=== PATIENT | female | born 1990 | race Hispanic/Latino ===

== ENCOUNTER 2018-05-02 15:06 | Emergency (ER) | payer MEDICAID ==
[2018-05-02] MEDS ORDERED: ACETAMINOPHEN 325 MG TAB ONE (15:44)
[2018-05-02 15:49] LABS: APPEARANCE,URINE Clear (CLEAR); BILIRUBIN,URINE Negative (NEGATIVE); COLOR,URINE Yellow (YELLOW); GLUCOSE, URINE (UA) Negative (NEGATIVE); KETONES,URINE Negative (NEGATIVE); LEUKOCYTE ESTERASE ,URINE Small (NEGATIVE); NITRATE,URINE Negative (NEGATIVE); OCCULT BLOOD,URINE Negative (NEGATIVE); PH,URINE 5.5 (5.0-8.0); PROTEIN,URINE Negative (NEGATIVE)
[2018-05-02 16:00] LABS: BACTERIA,URINE Few /HPF (None Seen); RBC,URINE None Seen /HPF (0-1)
== END 2018-05-02 17:23 | disposition home or self-care (01) ==
LOC: EDH 15:06
DX: O20.0 Threatened abortion (principal); O23.11 Infections of bladder in pregnancy, first trimester; M54.5 Low back pain; Z3A.01 Less than 8 weeks gestation of pregnancy; Z90.49 Acquired absence of other specified parts of digestive tract; Z88.0 Allergy status to penicillin
CPT/HCPCS: 36415; 76801; 81001; 84702

== ENCOUNTER 2018-07-09 10:29 | Emergency (ER) | payer MEDICAID ==
[2018-07-09 11:20] LABS: APPEARANCE,URINE Clear (CLEAR); BILIRUBIN,URINE Negative (NEGATIVE); COLOR,URINE Yellow (YELLOW); GLUCOSE, URINE (UA) Negative (NEGATIVE); KETONES,URINE Trace mg/dL (NEGATIVE); LEUKOCYTE ESTERASE ,URINE Small (NEGATIVE); NITRATE,URINE Negative (NEGATIVE); OCCULT BLOOD,URINE Negative (NEGATIVE); PROTEIN,URINE Negative (NEGATIVE)
[2018-07-09 11:31] LABS: RBC,URINE None Seen /HPF (0-1); WBC,URINE 0-1 /HPF (0-1)
[2018-07-09 11:32] LABS: BACTERIA,URINE Rare /HPF (None Seen); MUCUS,URINE Rare LPF (None Seen); SQUAMOUS EPITHELIAL CELL,UR Rare /HPF (0-2)
== END 2018-07-09 12:54 | disposition home or self-care (01) ==
LOC: EDH 10:29
DX: O23.41 Unspecified infection of urinary tract in pregnancy, first trimester (principal); Z3A.13 13 weeks gestation of pregnancy; Z90.49 Acquired absence of other specified parts of digestive tract; Z88.0 Allergy status to penicillin
CPT/HCPCS: 81001; 87088

== ENCOUNTER 2018-07-16 12:26 | Emergency (ER) | payer MEDICAID ==
[2018-07-16] MEDS ORDERED: ACETAMINOPHEN EXTRA STRENGTH 500 MG TABLET ONE (14:54)
== END 2018-07-16 17:20 | disposition home or self-care (01) ==
LOC: EDH 12:26
DX: O26.892 Other specified pregnancy related conditions, second trimester (principal); M54.5 Low back pain; R10.32 Left lower quadrant pain; Z88.0 Allergy status to penicillin; Z90.49 Acquired absence of other specified parts of digestive tract; Z98.890 Other specified postprocedural states; Z3A.14 14 weeks gestation of pregnancy
CPT/HCPCS: 76805

== ENCOUNTER 2018-08-25 16:15 | Observation (INO) | payer MEDICAID ==
[~2018-08-25] VITALS: Ht 154.9 cm; Wt 71.2 kg
[2018-08-25 17:28] LABS: APPEARANCE,URINE CLEAR (CLEAR); BILIRUBIN,URINE NEGATIVE (NEGATIVE); COLOR,URINE YELLOW (YELLOW); GLUCOSE, URINE (UA) NEGATIVE (NEGATIVE); KETONES,URINE NEGATIVE (NEGATIVE); LEUKOCYTE ESTERASE ,URINE TRACE (NEGATIVE); NITRATE,URINE NEGATIVE (NEGATIVE); OCCULT BLOOD,URINE NEGATIVE (NEGATIVE); PROTEIN,URINE NEGATIVE (NEGATIVE); UROBILINOGEN,URINE 0.2 mg/dL (0.2-1.0)
[2018-08-25 17:37] LABS: RBC,URINE 0-1 /HPF (0-1)
[2018-08-25 17:38] LABS: BACTERIA,URINE Few /HPF (None Seen); MUCUS,URINE Few LPF (None Seen); SQUAMOUS EPITHELIAL CELL,UR Few /HPF (0-2)
== END 2018-08-25 18:07 | disposition home or self-care (01) ==
LOC: EDH 16:15 → LDH 16:52
PROVIDERS: ADMIT Obstetrics & Gynecology; ATTEND Obstetrics & Gynecology
DX: O26.892 Other specified pregnancy related conditions, second trimester (principal); R10.9 Unspecified abdominal pain; V89.2XXA Person injured in unspecified motor-vehicle accident, traffic, initial encounter; Y93.89 Activity, other specified; Y92.410 Unspecified street and highway as the place of occurrence of the external cause; Y99.8 Other external cause status; Z3A.20 20 weeks gestation of pregnancy
CPT/HCPCS: 81001; 99284; G0378

== ENCOUNTER 2018-09-29 11:31 | Observation (INO) | payer MEDICAID ==
[2018-09-29 12:06] LABS: APPEARANCE,URINE Cloudy (CLEAR); BILIRUBIN,URINE Negative (NEGATIVE); COLOR,URINE Yellow (YELLOW); GLUCOSE, URINE (UA) Negative (NEGATIVE); KETONES,URINE Negative (NEGATIVE); LEUKOCYTE ESTERASE ,URINE Small (NEGATIVE); NITRATE,URINE Negative (NEGATIVE); OCCULT BLOOD,URINE Negative (NEGATIVE); PROTEIN,URINE Negative (NEGATIVE); UROBILINOGEN,URINE 0.2 mg/dL (0.2-1.0)
[2018-09-29 12:15] LABS: BACTERIA,URINE Few /HPF (None Seen); RBC,URINE 0-1 /HPF (0-1); SQUAMOUS EPITHELIAL CELL,UR Rare /HPF (0-2)
[2018-09-29] MEDS ORDERED: LACTATED RINGERS 1000ML 1,000 ML IV SCH (13:15)
[2018-09-29] MEDS ORDERED: PROMETHAZINE HCL 25 MG/ML 1ML AMPULE IM SCH (13:15)
== END 2018-09-29 13:55 | disposition home or self-care (01) ==
LOC: EDH 11:31 → LDH 11:57
PROVIDERS: ADMIT Obstetrics & Gynecology; ATTEND Obstetrics & Gynecology
DX: O21.2 Late vomiting of pregnancy (principal); O26.892 Other specified pregnancy related conditions, second trimester; R07.2 Precordial pain; R19.7 Diarrhea, unspecified; Z3A.25 25 weeks gestation of pregnancy
CPT/HCPCS: 81001; 99284; G0378 ×2; J7120 ×3; 96360; J2550

== ENCOUNTER 2018-11-03 08:45 | Observation (INO) | payer MEDICAID ==
[~2018-11-03] VITALS: Ht 154.9 cm; Wt 73.0 kg
[2018-11-03 09:49] LABS: APPEARANCE,URINE Clear (CLEAR); BILIRUBIN,URINE Negative (NEGATIVE); COLOR,URINE Yellow (YELLOW); GLUCOSE, URINE (UA) Negative (NEGATIVE); KETONES,URINE Negative (NEGATIVE); LEUKOCYTE ESTERASE ,URINE Trace (NEGATIVE); NITRATE,URINE Negative (NEGATIVE); OCCULT BLOOD,URINE Negative (NEGATIVE); PROTEIN,URINE Negative (NEGATIVE); UROBILINOGEN,URINE 0.2 mg/dL (0.2-1.0)
[2018-11-03 09:59] LABS: BACTERIA,URINE Rare /HPF (None Seen); RBC,URINE 0-1 /HPF (0-1); SQUAMOUS EPITHELIAL CELL,UR Rare /HPF (0-2); WBC,URINE 0-1 /HPF (0-1)
[2018-11-03] MEDS ORDERED: LACTATED RINGERS 1000ML 1,000 ML IV ONE (10:42)
[2018-11-03] MEDS ORDERED: TERBUTALINE SULFATE VIAL 1MG/ML SQ PRN (10:45)
[2018-11-03] MEDS ORDERED: LACTATED RINGERS 1000ML 1,000 ML IV SCH (10:45)
[2018-11-03] MEDS ORDERED: TERBUTALINE SULFATE VIAL 1MG/ML SQ ONE (10:53)
[2018-11-03] MEDS ORDERED: ACETAMINOPHEN 325 MG TAB PO SCH (12:15)
[2018-11-03] MEDS ORDERED: ACETAMINOPHEN 325 MG TAB ONE (12:29)
== END 2018-11-03 15:05 | disposition home or self-care (01) ==
LOC: LDH 08:45
PROVIDERS: ADMIT Obstetrics & Gynecology; ATTEND Obstetrics & Gynecology
DX: O42.913 Preterm premature rupture of membranes, unspecified as to length of time between rupture and onset of labor, third trimester (principal); Z3A.30 30 weeks gestation of pregnancy
CPT/HCPCS: 81001; 82120; 96372; G0378 ×6; J3105; J7120 ×3; 96360; 96361

== ENCOUNTER 2018-11-15 21:31 | Observation (INO) | payer MEDICAID ==
[~2018-11-15] VITALS: Ht 154.9 cm; Wt 70.3 kg
[2018-11-15 22:07] LABS: BILIRUBIN,URINE Negative (NEGATIVE); COLOR,URINE Yellow (YELLOW); GLUCOSE, URINE (UA) Negative (NEGATIVE); KETONES,URINE Negative (NEGATIVE); LEUKOCYTE ESTERASE ,URINE Small (NEGATIVE); NITRATE,URINE Negative (NEGATIVE); OCCULT BLOOD,URINE Negative (NEGATIVE); PROTEIN,URINE Negative (NEGATIVE)
[2018-11-15 22:08] LABS: APPEARANCE,URINE SLIGHTLY CLOUDY (CLEAR)
[2018-11-15 22:15] LABS: BACTERIA,URINE Few /HPF (None Seen); RBC,URINE 0-1 /HPF (0-1); SQUAMOUS EPITHELIAL CELL,UR Few /HPF (0-2)
[2018-11-15 22:16] LABS: AMORPHOUS SEDIMENT,UR Few /LPF (None Seen); AMPHET/METH SCREEN,URINE NEGATIVE (NEGATIVE); BARBITURATE SCREEN, URINE NEGATIVE (NEGATIVE); BENZODIAZEPINES SCREEN,URINE NEGATIVE (NEGATIVE); CANNABINOID SCREEN,URINE NEGATIVE (NEGATIVE); COCAINE SCREEN,URINE NEGATIVE (NEGATIVE); OPIATE SCREEN,URINE NEGATIVE (NEGATIVE); PHENCYCLIDINE SCREEN,URINE NEGATIVE (NEGATIVE)
[2018-11-15] MEDS ORDERED: CLINDAMYCIN 900 MG/D5% WATER 50 ML IV SCH (22:40)
[2018-11-15] MEDS: LACTATED RINGERS 1000ML 1,000 ML IV PRN (23:58)
[2018-11-16] MEDS: LACTATED RINGERS 1000ML 1,000 ML IV PRN (03:00)
[2018-11-16 08:23] VITALS: BP 107/56
== END 2018-11-16 08:33 | disposition home or self-care (01) ==
LOC: EDH 21:31 → LDH 21:42
PROVIDERS: ADMIT Obstetrics & Gynecology; ATTEND Obstetrics & Gynecology
DX: O62.9 Abnormality of forces of labor, unspecified (principal); Z3A.33 33 weeks gestation of pregnancy; Z79.899 Other long term (current) drug therapy
CPT/HCPCS: 80305; 81001; 96365; 99284; G0378 ×11; J3490; J7120 ×2; 96360; 96361

== ENCOUNTER 2018-11-30 20:52 | Observation (INO) | payer MEDICAID ==
[~2018-11-30] VITALS: Ht 154.9 cm; Wt 76.2 kg
[2018-11-30] MEDS ORDERED: LACTATED RINGERS 1000ML 1,000 ML IV PRN (20:59)
[2018-11-30] MEDS: TERBUTALINE SULFATE VIAL 1MG/ML SQ SCH ×2 (22:17→22:55)
[2018-11-30 22:19] LABS: APPEARANCE,URINE Clear (CLEAR); BILIRUBIN,URINE Negative (NEGATIVE); COLOR,URINE Yellow (YELLOW); GLUCOSE, URINE (UA) Negative (NEGATIVE); KETONES,URINE Negative (NEGATIVE); LEUKOCYTE ESTERASE ,URINE Trace (NEGATIVE); NITRATE,URINE Negative (NEGATIVE); OCCULT BLOOD,URINE Negative (NEGATIVE); PROTEIN,URINE Negative (NEGATIVE); UROBILINOGEN,URINE 0.2 mg/dL (0.2-1.0)
[2018-11-30 22:27] LABS: AMPHET/METH SCREEN,URINE NEGATIVE (NEGATIVE); BARBITURATE SCREEN, URINE NEGATIVE (NEGATIVE); BENZODIAZEPINES SCREEN,URINE NEGATIVE (NEGATIVE); CANNABINOID SCREEN,URINE NEGATIVE (NEGATIVE); COCAINE SCREEN,URINE NEGATIVE (NEGATIVE); OPIATE SCREEN,URINE NEGATIVE (NEGATIVE); PHENCYCLIDINE SCREEN,URINE NEGATIVE (NEGATIVE)
[2018-11-30 22:36] LABS: BACTERIA,URINE Moderate /HPF (None Seen); RBC,URINE 0-1 /HPF (0-1); WBC,URINE 0-1 /HPF (0-1)
[2018-11-30] MEDS: LACTATED RINGERS 1000ML 1,000 ML IV SCH ×2 (22:56→23:42)
== END 2018-12-01 01:35 | disposition home or self-care (01) ==
LOC: EDH 20:52 → LDH 20:53
PROVIDERS: ADMIT Obstetrics & Gynecology; ATTEND Obstetrics & Gynecology
DX: O60.03 Preterm labor without delivery, third trimester (principal); Z3A.34 34 weeks gestation of pregnancy; Z79.899 Other long term (current) drug therapy
CPT/HCPCS: 80305; 81001; 96372 ×2; 99284; G0378 ×5; J3105; J7120; 96360; 96361

== ENCOUNTER 2018-12-12 03:53 | Observation (INO) | payer MEDICAID ==
[~2018-12-12] VITALS: Ht 154.9 cm; Wt 76.2 kg
[2018-12-12 04:08] VITALS: BP 123/72
[2018-12-12] MEDS ORDERED: LACTATED RINGERS 1000ML IV PRN (04:15)
[2018-12-12 04:21] LABS: APPEARANCE,URINE Clear (CLEAR); BILIRUBIN,URINE Negative (NEGATIVE); COLOR,URINE Yellow (YELLOW); GLUCOSE, URINE (UA) Negative (NEGATIVE); KETONES,URINE Negative (NEGATIVE); LEUKOCYTE ESTERASE ,URINE Small (NEGATIVE); NITRATE,URINE Negative (NEGATIVE); OCCULT BLOOD,URINE Negative (NEGATIVE); PH,URINE 6.5 (5.0-8.0); PROTEIN,URINE Negative (NEGATIVE); UROBILINOGEN,URINE 0.2 mg/dL (0.2-1.0)
[2018-12-12 04:41] LABS: BACTERIA,URINE Few /HPF (None Seen); RBC,URINE 0-1 /HPF (0-1)
[2018-12-12] MEDS ORDERED: LACTATED RINGERS 1000ML 1,000 ML IV SCH (05:45)
[2018-12-12] MEDS ORDERED: TERBUTALINE SULFATE VIAL 1MG/ML SQ SCH (05:45)
[2018-12-12] MEDS ORDERED: TERBUTALINE SULFATE VIAL 1MG/ML SQ ONE (05:56)
== END 2018-12-12 09:50 | disposition home or self-care (01) ==
LOC: EDH 03:53 → LDH 04:01
PROVIDERS: ADMIT Obstetrics & Gynecology; ATTEND Obstetrics & Gynecology
DX: O62.9 Abnormality of forces of labor, unspecified (principal); Z3A.36 36 weeks gestation of pregnancy
CPT/HCPCS: 59025; 76805; 81001; 96372; 99284; G0378 ×6; J3105; J7120 ×2; 96360; 96361

== ENCOUNTER 2025-03-15 17:11 | Emergency (ER) | payer OTHER ==
[~2025-03-15] VITALS: Ht 154.9 cm; Wt 69.9 kg
[~2025-03-15 17:11] MED LIST: PANT40TA55 PO
[2025-03-15 17:13] VITALS: TEMP 98.1
[2025-03-15 18:04] LABS: IMMATURE GRANULOCYTE ABSOLUTE 0.03 K/uL (0-1); NUCLEATED RED BLOOD CELLS 0.0 % (0.0-0.19); PLATELET COUNT (AUTO) 310 K/uL (130-400); RED BLOOD CELL COUNT(AUTO) 4.77 MIL/uL (4.00-5.50); RED CELL DISTRIBUTION WIDTH 13.2 % (11.0-15.5); WHITE BLOOD COUNT (AUTO) 10.5 K/uL (4.8-10.8)
[2025-03-15 18:05] LABS: APPEARANCE,URINE CLOUDY (CLEAR); GLUCOSE, URINE (UA) NEGATIVE (NEGATIVE); LEUKOCYTE ESTERASE ,URINE 25 Leu/uL (NEGATIVE); NITRATE,URINE NEGATIVE (NEGATIVE); OCCULT BLOOD,URINE NEGATIVE (NEGATIVE)
[2025-03-15 18:06] LABS: ADD UA MICROSCOPIC YES
[2025-03-15 18:09] LABS: SQUAMOUS EPITHELIAL CELL,UR FEW /HPF (0-2)
[2025-03-15 18:09] LABS: CREATININE 0.6 mg/dL (0.5-1.0); GLOMERULAR FILTR. RATE CALC 121.0 mL/min (>90); GLUCOSE,RANDOM 95.0 mg/dL (70-105); SODIUM SERUM 139.0 mmol/L (136-145); UREA NITROGEN, BLOOD 14.0 mg/dL (7-18)
[2025-03-15 18:20] LABS: ASPARTATE AMINOTRANSFERASE 28.0 U/L (10-37); HCG,QUANTITATIVE 0.0 mIU/mL (0-5); TOTAL PROTEIN, SERUM 7.8 g/dL (6.0-8.3)
[2025-03-15 18:46] VITALS: BP 133/88; PULSE 84; RESP 18; O2SAT 97
[2025-03-15] MEDS: FAMOTIDINE 20MG TAB PO ONE (18:55)
[2025-03-15] MEDS: MAG/ALUM/SIMETH 30 ML UDCUP PO ONE (18:56)
[2025-03-15] MEDS: LIDOCAINE HCL 2% VISCOUS 15 ML UDCUP PO ONE (18:56)
[2025-03-15] MEDS: DICYCLOMINE HCL 10 MG/5 ML ML PO ONE (18:56)
--- NOTE | 2025-03-15 19:03 | ERN ---
ED Note History of Present Illness Stated Complaint: ABD PAIN Chief Complaint: Abdominal Pain Time Seen by MD: 17:19 Time Seen by Midlevel: 17:22 Dictation: 34-year-old female coming in with complaints of abdominal pain, epigastric and right upper quadrant pain onset yesterday. Patient states she has a history of gallbladder stones and has a ready an appointment with a did not appear urine for a cholecystectomy next month. Denies having any fever, no active vomiting or diarrhea. Allergies: Coded Allergies: COVID-19 (SARS-CoV-2) vaccine, yoseph (Unverified Allergy, Severe, 12/04/24) Penicillins (Unverified Allergy, Unknown, UNKNOWN, 11/15/18) Home Meds Active Scripts Pantoprazole Sodium (Protonix) 40 Mg Ectab, 1 TAB PO DAILY for 30 Days, #30 TAB 0 Refills Prov:ZULEMA ANN MD 12/05/24 Past Medical History Past Medical History: Gallstones Surgical History: Appendectomy, BTL LMP: Feb 02, 2025 Review of System Dictation Constitutional: Negative for fever,chills, and weight loss Eyes: Negative for injury, pain,redness, and discharge ENT: Negative for injury,pain or swelling Cardiovascular: Negative for chest pain, palpitations, and edema Respiratory: Negative for shortness of breath, cough, and wheezing, Abdomen/GI: Positive for abdominal pain, no nausea, no vomiting, no diarrhea, and no constipation Back: Negative for injury and pain : Negative for injury, bleeding and discharge MS/Extremity: Negative for injury and deformity Skin: Negative for rash, and discoloration Neuro: Negative for headache, weakness, numbness, tingling, and seizure Psych: Negative for suicide ideation, homicidal ideation, and hallucinations Review of Systems: was completed Initial Vital Sign VS Vital Signs Date Time Temp Pulse Resp B/P (MAP) Pulse Ox O2 Delivery O2 Flow Rate FiO2 03/15/25 17:13 98.1 97 16 128/82 97 Room Air 0 03/15/25 18:46 21 Physical Exam Dictation General: awake, alert, NAD Head/Face: Normocephalic, atraumatic Eyes: PERRL, EOMI, vision at baseline ENT: oral cavity clear, TMs clear, no signs of infection Neck: Trachea midline, supple, no nuchal rigidity Cardiovascular: RRR, normal S1/S2, No MRGs, no JVD Respiratory: CTAB, no respiratory distress, No rales or wheezes Abdomen: Soft, non-tender, non-distended, normal bowel sounds, no guarding or re bound. Skin: Warm, dry, normal turgor, no rash MS/Extremity: Pulses equal, no cyanosis, neurovascular intact, FROM Neuro: COAx4, GCS 15, strength 5/5, CN 2-12 intact, normal cerebellar exam, normal gait, Psych: Normal behavior, mood, and affect normal Results (Laboratory/Radiology) Laboratory/Radiology Laboratory Tests Test 03/15/25 17:50 03/15/25 17:55 White Blood Count 10.5 K/uL (4.8-10.8) Red Blood Count 4.77 MIL/uL (4.00-5.50) Hemoglobin 13.2 g/dL (12.0-16.0) Hematocrit 40.7 % (36-48) Mean Corpuscular Volume 85.3 fL (79-99) Mean Corpuscular Hemoglobin 27.7 pg (27.0-33.0) Mean Corpuscular Hemoglobin Concent 32.4 g/dL (32.0-36.0) Red Cell Distribution Width 13.2 % (11.0-15.5) Platelet Count 310 K/uL (130-400) Mean Platelet Volume 10.2 fL (7.5-10.5) Immature Granulocyte % (Auto) 0.3 % (0-1) Neutrophils (%) (Auto) 76.1 % (40.0-77.0) Lymphocytes (%) (Auto) 16.3 % (21.0-51.0) L Monocytes (%) (Auto) 6.5 % (3.0-13.0) Eosinophils (%) (Auto) 0.6 % (0.0-8.0) Basophils (%) (Auto) 0.2 % (0.0-5.0) Neutrophils # (Auto) 8.0 K/uL (1.8-7.7) H Lymphocytes # (Auto) 1.7 K/uL (1.0-4.8) Monocytes # (Auto) 0.7 K/uL (0.1-1.0) Eosinophils # (Auto) 0.06 K/uL (0.00-0.70) Basophils # (Auto) 0.02 K/uL (0.00-0.20) Absolute Immature Granulocyte (auto 0.03 K/uL (0-1) Nucleated Red Blood Cells 0.0 % (0.0-0.19) Sodium Level 139 mmol/L (136-145) Potassium Level 3.6 mmol/L (3.5-5.1) Chloride Level 102 mmol/L (101-111) Carbon Dioxide Level 27 mmol/L (21-32) Blood Urea Nitrogen 14 mg/dL (7-18) Creatinine 0.6 mg/dL (0.5-1.0) Glomerular Filtration Rate Calc 121 mL/min (>90) Random Glucose 95 mg/dL (70-105) Total Calcium 9.0 mg/dL (8.5-10.1) Total Bilirubin 0.3 mg/dL (0.2-1.0) Direct Bilirubin 0.1 mg/dL (0.0-0.3) Aspartate Amino Transf (AST/SGOT) 28 U/L (10-37) Alanine Aminotransferase (ALT/SGPT) 30 U/L (12-78) Alkaline Phosphatase 105 U/L (50-136) Total Protein 7.8 g/dL (6.0-8.3) Albumin 4.1 g/dL (3.5-5.0) Lipase 44 U/L (16-77) Human Chorionic Gonadotropin, Quant 0 mIU/mL (0-5) Urine Color LIGHT-YELLOW (YELLOW) Urine Appearance CLOUDY (CLEAR) H Urine pH 6.5 (5.0-8.0) Urine Specific [place] 1.014 (1.001-1.031) Urine Protein NEGATIVE mg/dL (NEGATIVE) Urine Glucose (UA) NEGATIVE mg/dL (NEGATIVE) Urine Ketones NEGATIVE mg/dL (NEGATIVE) Urine Occult Blood NEGATIVE (NEGATIVE) Urine Nitrate NEGATIVE (NEGATIVE) Urine Bilirubin NEGATIVE mg/dL (NEGATIVE) Urine Urobilinogen 0.2 mg/dL (0.2-1.0) Urine Leukocyte Esterase 25 Cody/uL (NEGATIVE) H Urine RBC 6-10 /HPF (0-1) H Urine WBC 6-10 /HPF (0-1) H Urine Squamous Epithelial Cells FEW /HPF (0-2) Urine Bacteria RARE /HPF (None Seen) Labs Reviewed?: Yes ED Course ED Course Orders Procedure Category Date Status Time Cbc With Differential LAB 03/15/25 Complete 17:29 Basic Metabolic Panel LAB 03/15/25 Complete 17:29 Lipase LAB 03/15/25 Complete 17:29 Hepatic Function Panel LAB 03/15/25 Complete 17:29 Hcg,Quantitative LAB 03/15/25 Complete 17:29 Urinalysis Profile LAB 03/15/25 Complete 17:29 Culture Urine CECILIO 03/15/25 Logged 18:10 Ondansetron Odt 4mg PHA 03/15/25 In Process Tab (Zofran 4mg Odt) 19:00 Famotidine 20mg Tab PHA 03/15/25 In Process (Pepcid 20mg Tab) 19:00 Ketorolac PHA 03/15/25 In Process Tromethamine 15mg/Ml 19:00 Lidocaine Hcl 2% PHA 03/15/25 In Process Viscous (Lidocaine Hcl 19:00 Mag/Alum/Simeth 30ml PHA 03/15/25 In Process (Maalox Plus 30ml) 19:00 Dicyclomine Hcl PHA 03/15/25 In Process (Bentyl 10mg/5ml 19:00 Current Medications Medications (Trade) Dose Ordered Sig/Balbina Route PRN Reason Start Time Stop Time Status Last Admin Dose Admin Al Hydroxide/Mg Hydroxide (MAALox PLUS 30ML) 30 ml ONCE ONCE PO 03/15/25 19:00 03/15/25 19:01 03/15/25 18:56 Dicyclomine HCl (Bentyl 10mg/5ml Syrup) 10 mg ONCE ONCE PO 03/15/25 19:00 03/15/25 19:01 03/15/25 18:56 Famotidine (Pepcid 20mg Tab) 20 mg ONCE ONCE PO 03/15/25 19:00 03/15/25 19:01 03/15/25 18:55 Ketorolac Tromethamine (toRADol) 15 mg ONCE ONCE IM 03/15/25 19:00 03/15/25 19:01 03/15/25 18:56 Lidocaine HCl (Lidocaine HCl 2% Viscous) 10 ml ONCE ONCE PO 03/15/25 19:00 03/15/25 19:01 03/15/25 18:56 Ondansetron HCl (zoFRAN 4MG ODT) 4 mg ONCE ONCE SL 03/15/25 19:00 03/15/25 19:01 03/15/25 18:55 Vital Signs Date Time Temp Pulse Resp B/P (MAP) Pulse Ox O2 Delivery O2 Flow Rate FiO2 03/15/25 18:46 84 18 133/88 97 Room Air* 0 21 03/15/25 17:13 98.1 97 16 128/82 97 Room Air 0 Medical Decision Making MDM MDM: 34-year-old female coming in with complaints of abdominal pain, epigastric and right upper quadrant pain onset yesterday. Patient states she has a history of gallbladder stones and has a ready an appointment with a did not appear urine for a cholecystectomy next month. Denies having any fever, no active vomiting or diarrhea.CBC shows no leukocytosis, no anemia, no thrombocytopenia. Chemistries unremarkable. There are no electrolyte abnormality. Normal kidney function. Normal T bili. No transaminitis. Lipase within normal range. UA shows no evidence of urinary tract infection. Discussed with the patient on findings. All her patient an ultrasound here but could not guarantee that patient would be admitted for a cholecystectomy. Patient stated refused the ultrasound, states he would like pain medication and we will follow up with her general surgeon. Educated patient she needs to follow up with general surgeon either tomorrow or the following day for further evaluation has been going to can move up the surgery. Differential diagnosis: Transaminitis, cholelithiasis, gastroenteritis, GERD Rationale: Tests considered and ordered secondary to shared decision making i nclude: Previous outside records reviewed: Old ER visits. Risk of complication and/or morbidity or mortality of patient management: None Medications-Per medication reconciliation Need for hospitalization: Patient does not meet criteria for hospitalization. Need for emergency major/minor surgery: No There are no social concerns with this patient. Prescription drug management Prescriptions will include symptomatic care Patient's prior external medical records from other ER visits were reviewed by me as indicated. Prior testing and results from previous visits were reviewed. Prior tests were taken into account with medical decision making and resource utilization, independent historian/historians were used to obtain complete medical history. I independently interpreted the test that were performed, results were reviewed by me and considered findings on radiology if ordered. Medical management and examination interpretation discussions were had by me with other qualified healthcare professionals as indicated for the patient's care. DX & DISP Disposition: Discharge Departure Impression: Primary Impression: Abdominal pain Condition: Stable Additional Instructions: If you began to develop fever, further nausea or vomiting. Unable to keep any food or fluids down. Return to the hospital. Otherwise follow up with the general surgeon in 1-2 days. Referrals: SELF,REFERRAL (PCP) Time of Disposition: 19:03 I have reviewed the case, and I agree with, Diagnosis and Plan CHIDI RINCON [facility] Mar 15, 2025 19:03
== END 2025-03-15 19:07 | disposition home or self-care (01) ==
LOC: EDH 17:11
DX: R10.13 Epigastric pain (principal); R10.11 Right upper quadrant pain; Z88.0 Allergy status to penicillin; Z79.899 Other long term (current) drug therapy
CPT/HCPCS: 99284; 80076; 80048; 84702; 83690; 85025; 87086; 81001; 36415; 96372; J1885

== ENCOUNTER 2025-03-20 08:30 | Day surgery (SDC) | payer OTHER ==
[2025-03-17 09:58] VITALS: BP 103/71; PULSE 72; RESP 12; TEMP 97.7
[2025-03-17 10:01] LABS: IMMATURE GRANULOCYTE ABSOLUTE 0.03 K/uL (0-1); NUCLEATED RED BLOOD CELLS 0.0 % (0.0-0.19); PLATELET COUNT (AUTO) 309 K/uL (130-400); RED BLOOD CELL COUNT(AUTO) 4.82 MIL/uL (4.00-5.50); RED CELL DISTRIBUTION WIDTH 13.3 % (11.0-15.5); WHITE BLOOD COUNT (AUTO) 8.2 K/uL (4.8-10.8)
[2025-03-17 10:21] LABS: INR 0.97 (0.85-1.15)
[2025-03-17 11:13] LABS: CREATININE 0.6 mg/dL (0.5-1.0); GLOMERULAR FILTR. RATE CALC 121.0 mL/min (>90); GLUCOSE,RANDOM 88.0 mg/dL (70-105); SODIUM SERUM 140.0 mmol/L (136-145); UREA NITROGEN, BLOOD 14.0 mg/dL (7-18)
[2025-03-20] VITALS (17 sets, daily range): BP systolic 98–110; BP diastolic 55–66; PULSE 68–78; RESP 11–21; TEMP 97–98
[~2025-03-20] VITALS: Ht 154.9 cm; Wt 71.3 kg
[2025-03-20] MEDS ORDERED: LACTATED RINGERS 1000ML 1,000 ML IV ONE (09:00)
[2025-03-20] MEDS ORDERED: CLINDAMYCIN IVPB 900MG/50ML 50 ML IV ONE (09:00)
[2025-03-20] MEDS ORDERED: MIDAZOLAM HCL 1 MG/ML 2ML VIAL ONE (09:54)
[2025-03-20] MEDS ORDERED: LIDOCAINE PF 100MG/5ML (2%) SYRINGE 5ML ONE (09:54)
[2025-03-20] MEDS ORDERED: GLYCOPYRROLATE 0.2 MG/ML 5 ML VIAL ONE (11:25)
[2025-03-20] MEDS ORDERED: SUGAMMADEX SODIUM 200 MG/2 ML VIAL IV ONE (11:44)
--- NOTE | 2025-03-20 11:45 | OP ---
Operative Note: DATE OF PROCEDURE: 03/20/25 SURGEON: KAITY PAUL MD [employer] [place]: [] ANESTHESIA: [] GENERAL ANESTHESIOLOGIST/COMPUTER REPAIR TECHNICIAN: [] PREOPERATIVE DIAGNOSIS: [] CHOLECYSTITIS POSTOPERATIVE DIAGNOSIS: [] The same SYNOPSIS: [] PROCEDURE: [] Laparoscopic cholecystectomy ESTIMATED BLOOD LOSS: [] Minimal INDICATIONS: [] DESCRIPTION OF PROCEDURE: [] With the patient prepped in the usual fashion umbilical l incision was additionally directed to meet with placement of the trocar and abdomen insufflated. Three 5 mm trochars were placed in the right upper quadrant under direct vision. The gallbladder was exposed adhesions were taken down and I dissected triangle of [place]. The cystic duct was clearly identified was triple clipped and divided and the cystic artery was double clipped and divided. I took the gallbladder from the liver using cautery dissection and after removed from the liver bed I placed an in a bag. I cauterized the liver bed and after adequate hemostasis and irrigation I removed all the trochars under direct vision and the gallbladder was removed from the umbilical incision. After removing the gallbladder I placed interrupted [id number] Vicryl's and the fascia. All incisions were closed with 4-0 Monocryl and Dermabond. Patient was stable at the end of the procedure KAITY PAUL MD Mar 20, 2025 11:45
--- NOTE | 2025-03-20 13:48 | NUR ---
Full and complete discharge instructions given to Patient and Family both verbally and in writing. Explained Surgical procedure precautions and follow up. Lap Tali incision sites clean dry and intact. No evidence of bleeding, bruising or hematoma. All questions answered. PIV removed with catheter tip intact. Family at bedside appearing supportive. W/C to POV with Family to home
== END 2025-03-20 13:51 | disposition home or self-care (01) ==
LOC: DAH 08:30
PROVIDERS: ATTEND Surgery
DX: K80.12 Calculus of gallbladder with acute and chronic cholecystitis without obstruction (principal); Z86.2 Personal history of diseases of the blood and blood-forming organs and certain disorders involving the immune mechanism; Z90.89 Acquired absence of other organs; Z88.0 Allergy status to penicillin; Z98.890 Other specified postprocedural states
CPT/HCPCS: 80048; 84703 ×2; 85025; 85610; 85730; 36415 ×2; 47562; 88304; J1100; A4223 ×2; A4600; A6260; A4663; J7030; J7120 ×2; J3010 ×2; J1171; J0665 ×2; J3490 ×4; J2003; J2250; J2704; J2405; J2795; C1769 ×3; A4649; A4930; A4215 ×2; A4213; A4222; A4221; A4216